=== PATIENT | female | born 1940 | race Caucasian/White ===

== ENCOUNTER 2018-06-29 18:23 | Inpatient (IN) | payer MEDICARE ==
[2018-06-29 19:43] LABS: BASOPHILS % 0.6 % (0.0-1.0); EOSINOPHILS # (AUTO) 0.1 (0.0-0.4); EOSINOPHILS % 2.6 % (0.0-6.0); HEMATOCRIT 38.7 % (34.2-44.1); HEMOGLOBIN 12.8 g/dL (12.0-16.0); LYMPHOCYTES # (AUTO) 0.7 (1.0-3.2); LYMPHOCYTES % 20.1 % (18.0-39.1); MEAN CORPUSCULAR HEMOGLOBIN 30.9 pg (28-32); MEAN CORPUSCULAR HGB CONC 33.1 g/dL (31-35); MEAN CORPUSCULAR VOLUME 93.5 fL (81-99); MONOCYTES # (AUTO) 0.4 (0.2-0.8); NEUTROPHILS # (AUTO) 2.2 (2.1-6.9); NEUTROPHILS % 64.4 % (38.7-80.0); PLATELET COUNT 168 x10e3/uL (140-360); RED BLOOD COUNT 4.14 x10e6/uL (3.6-5.1); RED CELL DISTRIBUTION WIDTH 13.2 % (11.7-14.4)
[2018-06-29 20:06] LABS: ALBUMIN 3.2 g/dL (3.5-5.0); ANION GAP 14.6 mmol/L (8-16); CREATININE, SERUM 0.97 mg/dL (0.57-1.11); POTASSIUM 3.6 mmol/L (3.5-5.1)
[2018-06-29 21:09] LABS: BILIRUBIN,URINE NEGATIVE (NEGATIVE); CLARITY,URINE HAZY (CLEAR); COLOR,URINE YELLOW (YELLOW); KETONES,URINE NEGATIVE (NEGATIVE); LEUKOCYTE ESTERASE ,URINE TRACE (NEGATIVE); NITRITE,URINE POSITIVE (NEGATIVE); PROTEIN,URINE DIPSTICK NEGATIVE (NEGATIVE); URINE UROBILINOGEN 0.2 mg/dL (0.2 - 1)
[2018-06-29 21:11] LABS: BACTERIA,URINE MANY /HPF; EPITHELIAL CELLS,URINE FEW /LPF
[2018-06-29] MEDS ORDERED: ALBUTEROL/IPRATROPIUM 3 ML NEB NEB ONE (21:15)
[2018-06-29] MEDS ORDERED: ONDANSETRON HCL INJ 2 MG/ML VIAL IV PRN (21:30)
[2018-06-29] MEDS ORDERED: CEFTRIAXONE SOD 1 GM/NS 50 ML 50 ML IV ONE (22:47)
[2018-06-29] MEDS: SODIUM CHLORIDE 0.9% 1000ML 1,000 ML IV SCH (23:00)
[2018-06-29] MEDS: CEFTRIAXONE SOD 1 GM VIAL IV SCH (23:05)
[2018-06-29] MEDS: VANCOMYCIN 250MG/5ML ORAL SOLN PO SCH (23:15)
[2018-06-30] MEDS: METRONIDAZOLE 500MG/NS 100ML 100 ML IV SCH ×4 (00:43→20:38)
[2018-06-30] MEDS: VANCOMYCIN 250MG/5ML ORAL SOLN PO SCH ×4 (00:44→20:39)
[2018-06-30] MEDS ORDERED: NAMZARIC PO (05:45)
[2018-06-30] MEDS ORDERED: TRIAMCINOLONE A15 G2 TOP (05:45)
[2018-06-30 06:42] LABS: BASOPHILS % 0.5 % (0.0-1.0); EOSINOPHILS # (AUTO) 0.1 (0.0-0.4); HEMATOCRIT 37.2 % (34.2-44.1); HEMOGLOBIN 12.4 g/dL (12.0-16.0); LYMPHOCYTES % 24.8 % (18.0-39.1); MEAN CORPUSCULAR HEMOGLOBIN 30.5 pg (28-32); MEAN CORPUSCULAR HGB CONC 33.3 g/dL (31-35); MEAN CORPUSCULAR VOLUME 91.6 fL (81-99); MONOCYTES # (AUTO) 0.5 (0.2-0.8); MONOCYTES % 11.8 % (4.4-11.3); NEUTROPHILS # (AUTO) 2.4 (2.1-6.9); NEUTROPHILS % 60.6 % (38.7-80.0); PLATELET COUNT 161 x10e3/uL (140-360); RED BLOOD COUNT 4.06 x10e6/uL (3.6-5.1)
[2018-06-30 07:06] LABS: ALANINE AMINOTRANSFERASE 9 IU/L (0-55); ALBUMIN 2.9 g/dL (3.5-5.0); ALKALINE PHOSPHATASE 74 IU/L (40-150); ANION GAP 11.1 mmol/L (8-16); BLOOD UREA NITROGEN 10 mg/dL (7-26); BUN/CREATININE RATIO 13 (6-25); CALCIUM 8.6 mg/dL (8.4-10.2); CARBON DIOXIDE 25 mmol/L (22-29); CHLORIDE 108 mmol/L (98-107); CREATININE, SERUM 0.78 mg/dL (0.57-1.11); EST GLOMERULAR FILTRATION RATE > 60 ML/MIN (60-); GLUCOSE 100 mg/dL (74-118); POTASSIUM 3.1 mmol/L (3.5-5.1); SODIUM 141 mmol/L (136-145)
--- NOTE | 2018-06-30 08:12 | NUR ---
NOTIFIED INTERNATIONAL EDITORIAL PRODUCER FOR PATIENT SITTER.
[2018-06-30] MEDS: TRIAMCINOLONE ACET 0.1% CREAM 15 GM TUBE TOP SCH ×2 (10:05→18:17)
[2018-06-30] MEDS: SODIUM CHLORIDE 0.9% 1000ML 1,000 ML IV SCH (12:16)
--- NOTE | 2018-06-30 13:08 | History and Physical ---
CHIEF COMPLAINT: C. difficile positive diarrhea. HISTORY OF PRESENT ILLNESS: This is a 77-year-old with a history of dementia, now developing diarrhea at an assisted living facility, found to be positive for Clostridium difficile, sent to the hospital for management. The patient is in an assisted living facility that has shared bathrooms. All history provided by patient's daughter at bedside. PAST MEDICAL HISTORY: Dementia, psoriasis. PAST SURGICAL HISTORY: Hand surgery and cholecystectomy. ALLERGIES: PER ELECTRONIC MEDICAL RECORD. FAMILY AND SOCIAL HISTORY: Patient lives at [facility]. No alcohol, illicits, or cigarettes. MEDICATIONS: Per electronic medical record. REVIEW OF SYSTEMS: Unobtainable. PHYSICAL EXAMINATION VITAL SIGNS: Have been reviewed. GENERAL: A tired-appearing female, resting in bed. HEENT: Anicteric. CARDIOVASCULAR: Normal S1, S2. LUNGS: Moderate breath sounds. ABDOMEN: Soft, nontender, nondistended. EXTREMITIES: No edema or calf tenderness. Some scaling of the hand palms. NEUROLOGIC: Awake and moving all extremities. SKIN: Dry. PSYCHIATRIC: Normal affect. LABS: Reviewed. MEDICATIONS: Reviewed. ASSESSMENT: This is a 77-year-old woman with; 1. Clostridium difficile diarrhea. 2. Urinary tract infection. 3. Dementia. 4. Acute kidney injury. 5. Psoriasis. PLAN 1. Continue treatment with oral vancomycin and IV Flagyl. 2. Continue ceftriaxone for urinary tract infection. 3. Follow up cultures. 4. Use Lovenox for DVT prophylaxis. 5. Rehydrate patient. 6. Physical therapy consultation and case management consult for skilled facility placement as patient is not able to go back to the assisted skilled facility while she is positive for C. diff. Job#: [id number] VIRIDIANA
--- NOTE | 2018-06-30 16:23 | NUR ---
patient self removed iv, started new 20g iv access to right ac.
[2018-06-30] MEDS ORDERED: ENOXAPARIN SOD INJ 40 MG/0.4 ML SYR SC SCH (17:00)
[2018-06-30] MEDS ORDERED: CEFTRIAXONE SOD 1 GM/NS 50 ML 50 ML IV ONE (22:15)
[2018-06-30] MEDS: CEFTRIAXONE SOD 1 GM VIAL IV SCH (22:24)
[2018-07-01] MEDS: SODIUM CHLORIDE 0.9% 1000ML 1,000 ML IV SCH ×2 (00:39→11:14)
[2018-07-01] MEDS: METRONIDAZOLE 500MG/NS 100ML 100 ML IV SCH ×3 (02:20→15:32)
[2018-07-01] MEDS: VANCOMYCIN 250MG/5ML ORAL SOLN PO SCH ×3 (02:20→15:32)
--- NOTE | 2018-07-01 06:58 | NUR ---
IM- Progress Note O/N; negative C.diff REVIEW OF SYSTEMS: Unobtainable. PHYSICAL EXAMINATION VITAL SIGNS: Have been reviewed. GENERAL: A tired-appearing female, resting in bed. HEENT: Anicteric. CARDIOVASCULAR: Normal S1, S2. LUNGS: Moderate breath sounds. ABDOMEN: Soft, nontender, nondistended. EXTREMITIES: No edema or calf tenderness. Some scaling of the hand palms. NEUROLOGIC: Awake and moving all extremities. SKIN: Dry. PSYCHIATRIC: Normal affect. LABS: Reviewed. MEDICATIONS: Reviewed. ASSESSMENT: This is a 77-year-old woman with; 1. Clostridium difficile diarrhea. 2. Urinary tract infection. 3. Dementia. 4. Acute kidney injury. 5. Psoriasis. PLAN 1. Continue treatment with oral vancomycin and IV Flagyl. 2. Continue ceftriaxone for urinary tract infection. 3. Follow up cultures. 4. Use Lovenox for DVT prophylaxis. 5. Rehydrate patient. 6. Physical therapy consultation and case management consult for skilled facility placement as patient is not able to go back to the assisted skilled facility while she is positive for C. diff. 07/01 check c.diff #2. If negative, will d/c back to assisted living; GNR UTI- f/u. cont abx. Add questran. Mihai Head MD, PhD.
--- NOTE | 2018-07-01 07:00 | NUR ---
received report from off going nurse. patient in room in hospital bed. 1:1 sitter in room with patient. no s/s of acute distress. resp even and non labored. bed down call lightin reach, pending room assignment, will continue to monitor.
[2018-07-01] MEDS ORDERED: NAMZARIC PO SCH (09:00)
[2018-07-01] MEDS: TRIAMCINOLONE ACET 0.1% CREAM 15 GM TUBE TOP SCH (09:14)
[2018-07-01 09:25] LABS: BASOPHILS % 0.5 % (0.0-1.0); EOSINOPHILS # (AUTO) 0.1 (0.0-0.4); EOSINOPHILS % 1.4 % (0.0-6.0); HEMATOCRIT 37.4 % (34.2-44.1); HEMOGLOBIN 12.7 g/dL (12.0-16.0); LYMPHOCYTES % 23.2 % (18.0-39.1); MEAN CORPUSCULAR HEMOGLOBIN 31.2 pg (28-32); MEAN CORPUSCULAR VOLUME 91.9 fL (81-99); MONOCYTES # (AUTO) 0.3 (0.2-0.8); MONOCYTES % 6.9 % (4.4-11.3); NEUTROPHILS # (AUTO) 2.9 (2.1-6.9); NEUTROPHILS % 67.8 % (38.7-80.0); PLATELET COUNT 157 x10e3/uL (140-360); RED BLOOD COUNT 4.07 x10e6/uL (3.6-5.1); RED CELL DISTRIBUTION WIDTH 12.9 % (11.7-14.4)
[2018-07-01 09:43] LABS: ANION GAP 14.2 mmol/L (8-16); CALCIUM 8.5 mg/dL (8.4-10.2); CREATININE, SERUM 0.92 mg/dL (0.57-1.11); POTASSIUM 3.2 mmol/L (3.5-5.1)
[2018-07-01] MEDS ORDERED: CHOLESTYRAMINE 4 GM PACKET PO SCH (10:00)
[2018-07-01] MEDS ORDERED: KEFLEX500 MG PO (15:12)
[2018-07-01] MEDS ORDERED: CHOLESTYRAMINE L4 GM PO (15:12)
[2018-07-01] MEDS ORDERED: FLAGYL500 MG PO (15:12)
--- NOTE | 2018-07-01 15:15 | NUR ---
Discharge SUmmary Principal Dx: ASSESSMENT: This is a 77-year-old woman with; 1. Clostridium difficile diarrhea. 2. Urinary tract infection. 3. Dementia. 4. Acute kidney injury. 5. Psoriasis. Secondary dx: 1.Dementia cc and hPI: refer to H&P Hospital course: ASSESSMENT: This is a 77-year-old woman with; 1. Clostridium difficile diarrhea. 2. Urinary tract infection. 3. Dementia. 4. Acute kidney injury. 5. Psoriasis. PLAN 1. Continue treatment with oral vancomycin and IV Flagyl. 2. Continue ceftriaxone for urinary tract infection. 3. Follow up cultures. 4. Use Lovenox for DVT prophylaxis. 5. Rehydrate patient. 6. Physical therapy consultation and case management consult for skilled facility placement as patient is not able to go back to the assisted skilled facility while she is positive for C. diff. 07/01 check c.diff #2. If negative, will d/c back to assisted living; GNR UTI- f/u. cont abx. Add questran. Second C.diff negative; d/c back to facility on keflex for UTI (no leukocytosis), and flagyl and questran for 1 week. f/u pcp 1 week d/c time>35mins d/c location: assisted living facility d/c condition: stable; d/c meds; see KELLY Head MD, PhD.
[2018-07-01] MEDS ORDERED: POTASSIUM CHLORIDE 20 MEQ TAB CR PO NR (15:30)
--- NOTE | 2018-07-01 15:56 | NUR ---
REPORT TO [facility] AND EMS FOR TRANSPORT CALLED.
== END 2018-07-01 13:48 | disposition home or self-care (01) | DRG 372 ==
LOC: ER 18:23 → ERHOLD 21:23
PROVIDERS: ADMIT Internal Medicine; ATTEND Internal Medicine
DX: A04.72 Enterocolitis due to Clostridium difficile, not specified as recurrent (principal); N17.9 Acute kidney failure, unspecified; N39.0 Urinary tract infection, site not specified; F03.90 Unspecified dementia, unspecified severity, without behavioral disturbance, psychotic disturbance, mood disturbance, and anxiety; E86.0 Dehydration; L40.9 Psoriasis, unspecified; B96.89 Other specified bacterial agents as the cause of diseases classified elsewhere; E87.6 Hypokalemia
CPT/HCPCS: 36415; 80048; 80053; 81001; 85025; 87086; 87186; 87493; 97139; 99284; J0696; J1650; J7030